=== PATIENT | male | born 1980 | race Caucasian/White ===

== ENCOUNTER 2020-02-01 14:49 | Outpatient (CLI) | payer BC, SELFPAY ==
--- NOTE | 2020-02-01 | ECG_ITS ---
Measurements Intervals [place] Rate: 64 P: 23 IA: 149 QRS: 17 QRSD: 88 T: 25 QT: 373 QTc: 386 Interpretive Statements SINUS RHYTHM VENTRICULAR PREMATURE COMPLEX EARLY PRECORDIAL R/S TRANSITION BORDERLINE ECG Electronically Signed On 02-01-2020 15:51:34 CDT by Bipin Galaviz D.O.
== END 2020-02-01 14:50 | disposition home or self-care (01) ==
PROVIDERS: PCP Emergency Medicine; Visit Provider Emergency Medicine
DX: R00.2 Palpitations (principal)
CPT/HCPCS: 93005

== ENCOUNTER 2020-02-13 14:53 | Outpatient (CLI) | payer BC, SELFPAY ==
--- NOTE | 2020-02-19 15:55 | WPDHOLTEREM ---
Holter/Event Monitor Holter/Event Monitor Date of procedure: 02/19/20 Procedure Type: Date of service 02/19/2020 48 hour Holter monitor Diagnosis: palpitations Indications: palpitations Image/Tracing Quality: excellent Finding: patient was monitored for 48 hours. Average heart rate was 67 beats per minute with a minimum heart rate 46 beats per minute and maximum heart rate 152 beats per minute. Longest pause was 1.5 seconds. No atrial fibrillation seen. No ventricular ectopy seen. There were a total of 26 supraventricular ectopic beats in isolated form. No atrial tachycardia. Patient did not submit symptom diary. Conclusion: rare premature supraventricular contractions. No other arrhythmias seen.
--- NOTE | 2020-02-23 16:39 | HOLTER_ITS ---
This report was moved to the correct visit, [id number], on March 06, 2020. Original report was signed by Dr. Jansen on February 23, 2020 at 1646. Holter/Event Monitor Holter/Event Monitor Date of procedure: 02/23/20 Procedure Type: 48 hour Holter monitor Diagnosis: palpitations Indications: palpitation Image/Tracing Quality: favorable Finding: the basic cardiac rhythm is sinus with normal [place] QRS and QT intervals. Heart rate varies from a minimum of 47-174 with an average rate of 76. There were no abrupt pauses or abnormalities of AV conduction observed. The longest RR interval recorded was 1.6 seconds. Supraventricular ectopic activity was extremely rare PACs occur at a rate of less than 1 complex per hour. There were no examples of atrial fibrillation. Ventricular ectopic activity is frequent consisting of PVCs occurring throughout the tracing. PVCs occur at an average rate of 122 beats per hour. There were few examples of PVCs occurring in a pattern of bigeminy. Most of these however occurred in single beats there were no ventricular couplets or runs. The patient maintained a diary in which 3 episodes of palpitations were recorded. The corresponding rhythm for these was sinus with occasional PVCs which was the rhythm throughout the entire day. Conclusion: Sinus rhythm with frequent benign appearing unifocal PVCs which appear to be related to the patient's symptoms of palpitations. Flo Jansen MD [facility] Report Initialized date/time: Flo Jansen MD 02/23/20 / 1639 Electronically signed by: Flo Jansen MD 02/23/20 1646 [facility]
== END 2020-02-13 14:54 | disposition home or self-care (01) ==
PROVIDERS: PCP Emergency Medicine; Visit Provider Emergency Medicine
DX: R00.2 Palpitations (principal)
CPT/HCPCS: 93225; 93226

== ENCOUNTER 2020-02-22 14:02 | Outpatient (CLI) | payer BC, SELFPAY ==
--- NOTE | 2020-02-22 | ECHO_ITS ---
Patient Info Name: Arie Galdamez Age: 39 years : 1980 Gender: Male Ht: 70 in Wt: 175 lbs BSA: 1.99 m2 HR: 68 bpm BP: 135 / 85 mmHg Technical Quality: Good Exam Date: 02/22/2020 2:30 PM Exam Location: [facility] Patient Status: Outpatient Admit Date: 02/22/2020 Staff Ordering Physician: Niko Murphy MD Appliance Service Representative: Jeanette Cantu RDCS Attending Provider: Niko Murphy MD Referring Physician: Jeffrey NICHOLS; Exam Type: CA echo doppler color flow Study Info Indications - palpitations Complete two-dimensional, color flow and Doppler transthoracic echocardiogram is performed. Summary 1. Left ventricular chamber dimension is normal. 2. Left ventricular systolic function is normal, estimated at 60-65%. 3. The left ventricular diastolic function is normal. 4. E/e' 7 is not elevated. 5. Global longitudinal strain is normal at -23.9%. 6. Left atrial chamber dimension is mildly enlarged. 7. There is trace tricuspid valve regurgitation. 8. No pulmonary hypertension, estimated pulmonary arterial systolic pressure is 34 mmHg. Left Ventricle E/e' 7 is not elevated. Global longitudinal strain is normal at -23.9%. Left ventricular chamber dimension is normal. Left ventricular systolic function is normal, estimated at 60-65%. The left ventricular diastolic function is normal. Right Ventricle Right ventricular chamber dimension is normal. Right ventricular systolic function is normal. Left Atria Left atrial chamber dimension is mildly enlarged. Right Atria Right atrial chamber dimension is normal. Aortic Valve The aortic valve is trileaflet. There is no aortic valve stenosis. There is no aortic valve regurgitation. Pulmonic Valve There is no pulmonic regurgitation. Mitral Valve There is no mitral valve stenosis. There is no mitral valve regurgitation. Tricuspid Valve There is trace tricuspid valve regurgitation. No pulmonary hypertension, estimated pulmonary arterial systolic pressure is 34 mmHg. Pericardium/Pleural There is no pericardial effusion. Inferior Vena Cava Normal inferior vena cava with >50% collapse upon inspiration consistent with normal right atrial pressure, 5 mmHg. Aorta The aortic root size at the sinus of Valsalva is normal. Left Ventricular Outflow Tract Name Value Normal LVOT 2D LVOT Diameter 2.0 cm LVOT Doppler LVOT Peak Gradient 7 mmHg LVOT Mean Gradient 4 mmHg LVOT VTI 25 cm LVOT VTI/AV VTI Ratio 0.9 LVOT Stroke Volume 82 ml LVOT CO 16.9 l/min LVOT CI 8.5 l/min/m2 Pulmonic Valve Name Value Normal PV Doppler PV Peak Gradient 7 mmHg Mitral Valve
--- NOTE | 2020-02-23 16:36 | WPDHOLTEREM ---
Holter/Event Monitor Holter/Event Monitor Date of procedure: 02/23/20 Procedure Type: 48 hour Holter monitor Diagnosis: palpitations Indications: palpitation Image/Tracing Quality: favorable Finding: the basic cardiac rhythm is sinus with normal [place] QRS and QT intervals. Heart rate varies from a minimum of 47-174 with an average rate of 76. There were no abrupt pauses or abnormalities of AV conduction observed. The longest RR interval recorded was 1.6 seconds. Supraventricular ectopic activity was extremely rare PACs occur at a rate of less than 1 complex per hour. There were no examples of atrial fibrillation. Ventricular ectopic activity is frequent consisting of PVCs occurring throughout the tracing. PVCs occur at an average rate of 122 beats per hour. There were few examples of PVCs occurring in a pattern of bigeminy. Most of these however occurred in single beats there were no ventricular couplets or runs. The patient maintained a diary in which 3 episodes of palpitations were recorded. The corresponding rhythm for these was sinus with occasional PVCs which was the rhythm throughout the entire day. Conclusion: Sinus rhythm with frequent benign appearing unifocal PVCs which appear to be related to the patient's symptoms of palpitations. Flo Jansen MD [facility]
== END 2020-02-22 14:03 | disposition home or self-care (01) ==
PROVIDERS: PCP Emergency Medicine; Visit Provider Emergency Medicine
DX: R00.2 Palpitations (principal)
CPT/HCPCS: 93306

== ENCOUNTER 2020-10-05 08:04 | Outpatient (CLI) | payer BC, SELFPAY ==
--- NOTE | ~2020-10-05 | MR_ITS ---
EXAMINATION: MR lumbar spine wo con EXAM DATE: 10/05/2020 08:54 INDICATION: Low back pain. TECHNIQUE: Multi-sequential, multiplanar MR images of the lumbar spine were obtained without contrast . Sagittal T1, T2, T2 fat saturation images. Axial T2 weighted images. Comparison is made to prior examination from 04/25/2016. FINDINGS: Level by level evaluation: T12-L1: Disc does not extend beyond the endplate margin. Facet arthropathy: Mild field. Neural foraminal stenosis: No stenosis. Central canal stenosis: No stenosis. L1-L2: Disc does not extend beyond the endplate margin. Facet arthropathy: Mild. Neural foraminal stenosis: No stenosis. Central canal stenosis: No stenosis. L2-L3: Disc does not extend beyond the endplate margin. Facet arthropathy: Mild. Neural foraminal stenosis: No stenosis. Central canal stenosis: No stenosis. L3-L4: Disc does not extend beyond the endplate margin. Facet arthropathy: Mild. Neural foraminal stenosis: No stenosis. Central canal stenosis: No stenosis. L4-L5: There is a mild diffuse disc bulge. Facet arthropathy: Mild. Neural foraminal stenosis: Mild to moderate right. Central canal stenosis: No stenosis. L5-S1: There is a mild diffuse disc bulge. Facet arthropathy: Mild. Neural foraminal stenosis: No stenosis. Central canal stenosis: No stenosis. IMPRESSION: Mild lumbar spondylosis. Reviewed, dictated and finalized at location A. [employer] REPA[employer] IMPRESSION: Mild lumbar spondylosis.
== END 2020-10-05 08:05 | disposition home or self-care (01) ==
DX: M47.896 Other spondylosis, lumbar region (principal)
CPT/HCPCS: 72148

== ENCOUNTER 2021-07-29 16:55 | Emergency (ER) | payer BC, SELFPAY ==
[2021-07-29 18:20] VITALS: BP 141/96; PULSE 86; RESP 20; TEMP 36.7; O2SAT 100
--- NOTE | 2021-07-29 20:02 | ED.GENADULT ---
HPI - General Adult General Chief complaint: Headache Stated complaint: Headache/Vomiting/Nausea Time Seen by Provider: 07/29/21 19:50 Source: patient, RN notes reviewed and old records reviewed Mode of arrival: ambulatory Limitations: no limitations History of Present Illness HPI narrative: 41-year-old male who presents to [facility] with complaints of headaches. nausea vomiting which started yesterday while he was at work. Patient states that he was able to eat last night but has been unable to eat today has been able to drink a bottle of water. Patient denies any known fevers chills or sweats or any body aches. Patient has not had COVID or flu vaccinations. Patient reports that headache is intermittent to parietal area of head denies pain at present, reports that he did take OTC nausea medication and some aspirin. Onset (ago): day(s) (1) Related Data Home Medications Medication Instructions Recorded Confirmed pregabalin 150 mg capsule 150 mg PO BID 02/19/20 07/29/21 alprazolam 1 mg tablet 1.5 mg PO DAILY 03/05/20 07/29/21 buprenorphine-naloxone 1 film SUBLINGUAL DAILY 07/29/21 07/29/21 cholecalciferol (vitamin D3) 25 mcg PO DAILY 07/29/21 07/29/21 cyclobenzaprine 10 mg PO DAILY 07/29/21 07/29/21 famotidine 20 mg PO DAILY 07/29/21 07/29/21 Allergies Allergy/AdvReac Type Severity Reaction Status Date / Time clindamycin Allergy Unknown Rash Verified 07/29/21 18:53 Review of Systems Review of Systems: CONSTITUTIONAL: Denies fever, chills, or sweats. EYES: Denies visual changes, redness, or discharge. ENT: Denies rhinorrhea, congestion, sore throat, or otalgia. CARDIOVASCULAR: Denies chest pain, palpitations, or edema. RESPIRATORY: Denies cough or dyspnea. GASTROINTESTINAL: Denies abdominal pain, positive for nausea, vomiting, no diarrhea. GENITOURINARY: Denies dysuria or hematuria. SKIN: Denies rash or itching. MUSCULOSKELETAL: Denies back pain, joint pain, or myalgia. NEUROLOGIC: Positive for intermittent parietal area headache, no numbness, or weakness. PSYCHIATRIC: Positive for history of anxiety or depression. All systems reviewed & are unremarkable except as noted in HPI and below PMFSH Past Medical History Medical History (Updated 07/31/21 @ 21:01 by Vicky Leary NP) Anxiety Hyperlipidemia Wrist pain Surgical History Surgical History (Updated 07/31/21 @ 20:56 by Vicky Leary NP) H/O wrist surgery Hx of appendectomy Family History Family History Mother Alive and well Father Hypertension Coronary artery disease Social History Social History (Updated 07/31/21 @ 20:47 by Vicky Leary NP) Smoking status: Current every day smoker Tobacco type: cigarettes Alcohol intake: unknown Substance use: former Substance use type: opiates Living arrangements: with family Comments At time of signature, agree with nursing past medical, surgical, social and family history. There is no relevant family history pertinent to the presenting complaint Exam Narrative: GENERAL:ill-appearing, well-nourished, and in no acute distress. HEAD: Normocephalic, atraumatic. EYES: PERRLA and EOMI. ENT: Nares clear, no rhinorrhea or epistaxis. Mucous membranes moist.TM's normal no throat redness or any lesions or exudates, tonsils absent NECK: Supple. no lymphadenopathy CHEST: Clear to auscultation. No respiratory distress.SAO2 100% on room air HEART: Regular rate and rhythm. No murmur heard. Normal peripheral pulses. ABDOMEN: Soft, nontender to palpation, nondistended, normal active bowel sounds. EXTREMITIES: Normal range of motion. No edema. SKIN: Warm, dry, no rash. NEURO: No focal deficits. Alert and oriented x3. Course Vital Signs Vital signs: Vital Signs Temperature 36.7 C 07/29/21 18:20 Pulse Rate 86 07/29/21 18:20 Respiratory Rate 20 07/29/21 18:20 Blood Pressure 141/96 H 07/29/21 18:20 Pulse Oximetry 100 07/29
== END 2021-07-29 20:30 | disposition home or self-care (01) ==
PROVIDERS: Emergency Provider Registered Nurse; PCP Internal Medicine
DX: R51.9 Headache, unspecified (principal); R11.2 Nausea with vomiting, unspecified; Z20.822 Contact with and (suspected) exposure to COVID-19; E78.5 Hyperlipidemia, unspecified; F41.9 Anxiety disorder, unspecified
CPT/HCPCS: 87804; 99213; G0463

== ENCOUNTER → 2021-07-31 01:32 | Outpatient (CLI) | payer BC, SELFPAY ==
[2021-07-31 20:33] LABS: SARS-CoV-2 RNA PCR Negative
== END ==
PROVIDERS: PCP Internal Medicine; Visit Provider Registered Nurse
DX: R51.9 Headache, unspecified (principal); Z20.822 Contact with and (suspected) exposure to COVID-19
CPT/HCPCS: C9803; U0003; U0005

== ENCOUNTER 2022-08-15 13:22 | Emergency (ER) | payer BC, SELFPAY ==
--- NOTE | ~2022-08-15 | XR_ITS ---
EXAMINATION: XR chest 2V DATE: 08/15/2022 13:48 INDICATION: One week of left-sided chest pain TECHNIQUE: PA and lateral views of the chest were obtained. COMPARISON: None FINDINGS: The lungs are clear with no focal airspace opacities, pulmonary edema, pleural effusion or pneumothor ax. The cardiomediastinal silhouette is normal. Moderate thoracic spondylosis. IMPRESSION: 1. No acute cardiopulmonary disease. Reviewed, dictated and finalized at location A. 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
[2022-08-15 13:32] VITALS: BP 148/91; PULSE 78; RESP 18; TEMP 37.1; O2SAT 99
--- NOTE | 2022-08-15 13:41 | ED.GENADULT ---
HPI - General Adult General Chief complaint: Abdominal Pain Stated complaint: left side pain Time Seen by Provider: 08/15/22 13:41 History of Present Illness HPI narrative: PATIENT PRESENTS WITH LEFT RIB PAIN. NO SHORTNESS OF BREATH AND NO CHEST PAIN. 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 NO FEVER NO COUGH Related Data Home Medications Medication Instructions Recorded Confirmed pregabalin 150 mg capsule (Lyrica) 150 mg PO BID 02/19/20 08/15/22 alprazolam 1 mg tablet (Xanax) 1.5 mg PO DAILY 03/05/20 08/15/22 buprenorphine 2 mg-naloxone 0.5 mg 1 film sublingual DAILY 07/29/21 08/15/22 sublingual film cholecalciferol (vitamin D3) 25 25 mcg PO DAILY 07/29/21 08/15/22 mcg (1,000 unit) capsule cyclobenzaprine 10 mg tablet 10 mg PO DAILY 07/29/21 08/15/22 famotidine 20 mg tablet 20 mg PO DAILY 07/29/21 08/15/22 Allergies Allergy/AdvReac Type Severity Reaction Status Date / Time clindamycin Allergy Unknown Rash Verified 08/15/22 13:30 Review of Systems Review of Systems: CONSTITUTIONAL: DENIES FEVER, CHILLS, OR SWEATS. EYES: DENIES VISUAL CHANGES, REDNESS, OR DISCHARGE. ENT: DENIES RHINORRHEA, CONGESTION, SORE THROAT, OR OTALGIA. CARDIOVASCULAR: DENIES CHEST PAIN, PALPITATIONS, OR EDEMA. RESPIRATORY: DENIES COUGH OR DYSPNEA. GASTROINTESTINAL: DENIES ABDOMINAL PAIN, NAUSEA, VOMITING, OR DIARRHEA. GENITOURINARY: DENIES DYSURIA OR HEMATURIA. SKIN: DENIES RASH OR ITCHING. MUSCULOSKELETAL: DENIES BACK PAIN, JOINT PAIN, OR MYALGIA. NEUROLOGIC: DENIES HEADACHE, NUMBNESS, OR WEAKNESS. PSYCHIATRIC: DENIES ANXIETY OR DEPRESSION. COUNTS INCLUDE 234 BEDS AT THE [facility] Past Medical History Medical History (Updated 08/15/22 @ 13:45 by JUAQUIN Allen) Anxiety Hyperlipidemia Wrist pain Surgical History Surgical History (Updated 07/31/21 @ 20:56 by Vicky Leary NP) H/O wrist surgery Hx of appendectomy Family History Family History Mother Alive and well Father Hypertension Coronary artery disease Social History Social History (Updated 07/31/21 @ 20:47 by Vicky Leary NP) Smoking status: Current every day smoker Tobacco type: cigarettes Alcohol intake: unknown Substance use: former Substance use type: opiates Comments AT TIME OF SIGNATURE, AGREE WITH NURSING PAST MEDICAL, SURGICAL, SOCIAL AND FAMILY HISTORY. THERE IS NO RELEVANT FAMILY HISTORY PERTINENT TO THE PRESENTING COMPLAINT Exam Narrative: GENERAL: WELL-APPEARING, WELL-NOURISHED, AND IN NO ACUTE DISTRESS. HEAD: NORMOCEPHALIC, ATRAUMATIC. EYES: PERRLA AND EOMI. ENT: NARES CLEAR, NO RHINORRHEA OR EPISTAXIS. MUCOUS MEMBRANES MOIST. NECK: SUPPLE. CHEST: CLEAR TO AUSCULTATION. NO RESPIRATORY DISTRESS. ALL PAIN REPRODUCIBLE. RIB TENDER. NO CREPITUS OR SQ EMPHYSEMA OR DEFORMITY OR STEP OFFS. NO ECCHYMOSIS OR LESIONS. HEART: REGULAR RATE AND RHYTHM. NO MURMUR HEARD. NORMAL PERIPHERAL PULSES. ABDOMEN: SOFT, NONTENDER, NONDISTENDED, NORMAL ACTIVE BOWEL SOUNDS. EXTREMITIES: NORMAL RANGE OF MOTION. NO EDEMA. SKIN: WARM, DRY, NO RASH. NEURO: NO FOCAL DEFICITS. ALERT AND ORIENTED X3. PREETI COMA SCALE EYE OPENING: SPONTANEOUS 4 PREETI COMA SCALE MOTOR: OBEYS COMMANDS 6 PREETI COMA SCALE VERBAL: ORIENTED 5 PREETI COMA SCALE TOTAL 15 Course Course Level of Care: Express Care Visit Vital Signs Vital signs: Vital Signs Temperature 37.1 C 08/15/22 13:32 Pulse Rate 78 08/15/22 13:32 Respiratory Rate 18 08/15/22 13:32 Blood Pressure 148/91 H 08/15/22 13:32 Pulse Oximetry 99 08/15/22 13:32 Oxygen Delivery Room Air 08/15/22 13:32 Temperature 37.1 C 08/15/22 13:32 Pulse Rate 78 08/15/22 13:32 Respiratory Rate 18 08/15/22 13:32 Blood Pressure 148/91 H 08/15/22 13:32 Pulse Oximetry 99 08/15/22 13:32 Oxygen Delivery Room Air 08/15/22 13:32 QUILES PRESSURE FOLLOW-UP PLEASE JORDYN SCHEDULE A FOLLOWUP VIS
== END 2022-08-15 13:52 | disposition home or self-care (01) ==
PROVIDERS: Emergency Provider Nurse Practitioner Family; PCP Internal Medicine
DX: M94.0 Chondrocostal junction syndrome [Tietze] (principal); E78.5 Hyperlipidemia, unspecified; F17.210 Nicotine dependence, cigarettes, uncomplicated
CPT/HCPCS: 71046; 99213; G0463